=== PATIENT | female | born 1980 | race Caucasian/White ===

== ENCOUNTER → 2023-08-08 | Outpatient (CLI) | payer BC ==
--- NOTE | 2023-08-08 15:25 | CT ---
EXAMINATION TYPE: CT hand RT wo con DATE OF EXAM: 08/08/2023 COMPARISON: 08/04/2023 x-ray HISTORY: right pinky finger CT DLP: 290 mGycm Automated exposure control for dose reduction was used. Contrast: None Technique: Axial images 3 mm thick sections. Reconstructed images in the coronal and sagittal planes. FINDINGS: There is a comminuted oblique fracture of the proximal portion middle phalanx right fifth digit. Frac ture lines extend from the medial metaphysis middle phalanx to the mid articular surface. The lateral proximal metaphysis extends towards a similar intra-articular site. No additional fractures are iden tified. Joint spaces appear preserved. IMPRESSION: 1. OBLIQUE FRACTURES EXTENDING FROM THE PROXIMAL MEDIAL METAPHYSIS AND MID LATERAL DIAPHYSIS TO THE M ID ARTICULAR SURFACE OF THE PROXIMAL INTERPHALANGEAL JOINT SPACE MIDDLE PHALANX.
== END | disposition home or self-care (01) ==
LOC: RADCTMAIN 13:04
PROVIDERS: ATTEND Orthopaedic Surgery Hand Surgery
DX: S62.626A Displaced fracture of middle phalanx of right little finger, initial encounter for closed fracture (principal)